=== PATIENT | female | born 1940 | race Caucasian/White ===

== ENCOUNTER 2019-03-07 17:03 | Inpatient (IN) | payer OTHER ==
[~2019-03-07] VITALS: Ht 162.6 cm; Wt 71.7 kg
[2019-03-07 18:35] LABS: CALCIUM 8.8 mg/dL (8.5-10.1); CARBON DIOXIDE 26.1 mmol/L (21-32); CHLORIDE SERUM 103 mmol/L (98-107); CREATININE SERUM 0.8 mg/dL (0.6-1.0); GLUCOSE SERUM 155 mg/dL (74-106); SODIUM SERUM 142 mmol/L (136-145)
[2019-03-07 18:42] LABS: PLATELET COUNT 216 x10^3mcL (130-400); RED CELL DISTRIBUTION WIDTH 12.7 % (11.5-14.5)
[2019-03-07 18:44] LABS: BASOPHIL % 0 % (0-2)
[2019-03-07 18:46] LABS: ALKALINE PHOSPHATASE 69 U/L (46-116); ALT/SGPT 41 U/L (14-59); AST/SGOT 26 U/L (15-37); BILIRUBIN TOTAL 1.7 mg/dL (0.20-1.00)
[2019-03-07] MEDS ORDERED: MULTI-VITAMINS1 TAB PO (19:40)
[2019-03-07] MEDS ORDERED: MONTELUKAST SOD10 M1 PO (19:40)
[2019-03-07] MEDS ORDERED: MAGNESIUM OXID400 MG (19:40)
[2019-03-07] MEDS ORDERED: TOPROL XL25 MG PO (19:41)
[2019-03-07] MEDS ORDERED: TRAZODONE50 M1 PO (19:41)
[2019-03-07] MEDS ORDERED: ASPIR 8181 MG PO (19:42)
[2019-03-07] MEDS ORDERED: CALCIUM 600600 M3 PO (19:42)
[2019-03-07 21:58] VITALS: BP 134/51
[2019-03-07 22:07] VITALS: BP 134/51
[2019-03-08 01:40] VITALS: BP 126/84
[2019-03-08 06:00] VITALS: BP 132/55
[2019-03-08 06:27] LABS: PLATELET COUNT 197 x10^3mcL (130-400); RED CELL DISTRIBUTION WIDTH 12.9 % (11.5-14.5)
[2019-03-08 06:29] LABS: CALCIUM 8.7 mg/dL (8.5-10.1); CARBON DIOXIDE 23.4 mmol/L (21-32); CHLORIDE SERUM 107 mmol/L (98-107); CREATININE SERUM 0.8 mg/dL (0.6-1.0); GLUCOSE SERUM 164 mg/dL (74-106); POTASSIUM SERUM 3.8 mmol/L (3.5-5.1); SODIUM SERUM 142 mmol/L (136-145)
[2019-03-08 06:51] LABS: BASOPHIL % 0 % (0-2)
[2019-03-08 08:21] VITALS: BP 118/53
[2019-03-08 16:31] VITALS: BP 115/52
[2019-03-08 21:27] VITALS: BP 114/51
[2019-03-09 05:29] VITALS: BP 112/55
[2019-03-09 06:14] LABS: BASOPHIL % 0.2 % (0-2); PLATELET COUNT 195 x10^3mcL (130-400); RED CELL DISTRIBUTION WIDTH 13.4 % (11.5-14.5)
[2019-03-09 07:12] LABS: ALKALINE PHOSPHATASE 54 U/L (46-116); ALT/SGPT 18 U/L (14-59); AST/SGOT 11 U/L (15-37); CALCIUM 8.2 mg/dL (8.5-10.1); CARBON DIOXIDE 25.5 mmol/L (21-32); CHLORIDE SERUM 108 mmol/L (98-107); CREATININE SERUM 0.7 mg/dL (0.6-1.0); GLUCOSE SERUM 130 mg/dL (74-106); MAGNESIUM 1.9 mg/dL (1.8-2.4); POTASSIUM SERUM 3.7 mmol/L (3.5-5.1); SODIUM SERUM 144 mmol/L (136-145)
[2019-03-09 07:14] LABS: ALBUMIN 2.8 g/dL (3.4-5.0); TOTAL PROTEIN, SERUM 5.7 g/dL (6.4-8.2)
[2019-03-09 10:01] VITALS: BP 110/49
[2019-03-09 17:40] VITALS: BP 109/55
[2019-03-09 20:49] VITALS: BP 112/63
[2019-03-10 06:10] VITALS: BP 126/49
[2019-03-10 09:25] VITALS: BP 125/54
[2019-03-10 16:23] VITALS: BP 139/70
[2019-03-10 21:00] VITALS: BP 125/54
[2019-03-11 03:30] VITALS: BP 142/67
[2019-03-11 06:00] VITALS: BP 120/63
[2019-03-11 07:59] LABS: ALKALINE PHOSPHATASE 44 U/L (46-116); ALT/SGPT 25 U/L (14-59); AST/SGOT 17 U/L (15-37); BILIRUBIN TOTAL 0.7 mg/dL (0.20-1.00); CALCIUM 8.1 mg/dL (8.5-10.1); CARBON DIOXIDE 26.8 mmol/L (21-32); CHLORIDE SERUM 105 mmol/L (98-107); CREATININE SERUM 0.7 mg/dL (0.6-1.0); GLUCOSE SERUM 130 mg/dL (74-106); MAGNESIUM 1.7 mg/dL (1.8-2.4); POTASSIUM SERUM 3.5 mmol/L (3.5-5.1); SODIUM SERUM 142 mmol/L (136-145)
[2019-03-11 08:02] LABS: ALBUMIN 2.7 g/dL (3.4-5.0); TOTAL PROTEIN, SERUM 5.5 g/dL (6.4-8.2)
[2019-03-11 08:03] LABS: BASOPHIL % 0.2 % (0-2); PLATELET COUNT 253 x10^3mcL (130-400); RED CELL DISTRIBUTION WIDTH 12.5 % (11.5-14.5)
[2019-03-11 09:27] VITALS: BP 108/72
[2019-03-11 18:55] VITALS: BP 125/54
[2019-03-11 21:15] VITALS: BP 122/48
[2019-03-12 05:52] VITALS: BP 114/48
[2019-03-12 07:51] LABS: BASOPHIL % 0.3 % (0-2); PLATELET COUNT 231 x10^3mcL (130-400); RED CELL DISTRIBUTION WIDTH 13.2 % (11.5-14.5)
[2019-03-12 08:08] LABS: CALCIUM 7.7 mg/dL (8.5-10.1); CARBON DIOXIDE 27.7 mmol/L (21-32); CHLORIDE SERUM 108 mmol/L (98-107); CREATININE SERUM 0.7 mg/dL (0.6-1.0); GLUCOSE SERUM 114 mg/dL (74-106); SODIUM SERUM 145 mmol/L (136-145)
[2019-03-12 09:00] VITALS: BP 131/43
[2019-03-12 09:14] LABS: POTASSIUM SERUM 2.9 mmol/L (3.5-5.1)
[2019-03-12 17:30] VITALS: BP 130/55
[2019-03-12 21:01] VITALS: BP 105/75
[2019-03-13 05:41] VITALS: BP 113/48
[2019-03-13 06:39] LABS: CALCIUM 8.1 mg/dL (8.5-10.1); CARBON DIOXIDE 28.3 mmol/L (21-32); CHLORIDE SERUM 107 mmol/L (98-107); CREATININE SERUM 0.7 mg/dL (0.6-1.0); GLUCOSE SERUM 113 mg/dL (74-106); POTASSIUM SERUM 3.3 mmol/L (3.5-5.1); SODIUM SERUM 144 mmol/L (136-145)
[2019-03-13 06:46] LABS: BASOPHIL % 0.3 % (0-2); PLATELET COUNT 219 x10^3mcL (130-400); RED CELL DISTRIBUTION WIDTH 12.9 % (11.5-14.5)
[2019-03-13 09:12] VITALS: BP 130/90
[2019-03-13 16:42] VITALS: BP 125/48
[2019-03-13 21:51] VITALS: BP 126/58
[2019-03-14 05:25] VITALS: BP 129/50
[2019-03-14 09:01] VITALS: BP 129/70
[2019-03-14 12:00] LABS: CALCIUM 7.6 mg/dL (8.5-10.1); CARBON DIOXIDE 30.5 mmol/L (21-32); CHLORIDE SERUM 105 mmol/L (98-107); CREATININE SERUM 0.7 mg/dL (0.6-1.0); GLUCOSE SERUM 133 mg/dL (74-106); POTASSIUM SERUM 3.1 mmol/L (3.5-5.1); SODIUM SERUM 140 mmol/L (136-145)
[2019-03-14 12:05] LABS: BASOPHIL % 0.3 % (0-2); PLATELET COUNT 227 x10^3mcL (130-400); RED CELL DISTRIBUTION WIDTH 13.5 % (11.5-14.5)
[2019-03-14 16:37] VITALS: BP 124/60
[2019-03-14 21:05] VITALS: BP 128/60
[2019-03-15 05:54] VITALS: BP 110/62
[2019-03-15 06:22] LABS: ALKALINE PHOSPHATASE 41 U/L (46-116); ALT/SGPT 25 U/L (14-59); AST/SGOT 15 U/L (15-37); BASOPHIL % 0.2 % (0-2); BILIRUBIN DIRECT 0.16 mg/dL (0.0-0.2); CALCIUM 7.9 mg/dL (8.5-10.1); CARBON DIOXIDE 28.2 mmol/L (21-32); CHLORIDE SERUM 106 mmol/L (98-107); CREATININE SERUM 0.6 mg/dL (0.6-1.0); GLUCOSE SERUM 155 mg/dL (74-106); PLATELET COUNT 240 x10^3mcL (130-400); POTASSIUM SERUM 3.5 mmol/L (3.5-5.1); RED CELL DISTRIBUTION WIDTH 13.2 % (11.5-14.5); SODIUM SERUM 141 mmol/L (136-145)
[2019-03-15 06:34] LABS: ALBUMIN 2.5 g/dL (3.4-5.0)
[2019-03-15 09:42] VITALS: BP 134/61
[2019-03-15 17:43] VITALS: BP 128/58
[2019-03-15 21:22] VITALS: BP 130/66
[2019-03-16 05:13] VITALS: BP 113/54
[2019-03-16 06:58] LABS: BASOPHIL % 0.2 % (0-2); PLATELET COUNT 235 x10^3mcL (130-400); RED CELL DISTRIBUTION WIDTH 13.2 % (11.5-14.5)
[2019-03-16 07:34] LABS: CALCIUM 8.4 mg/dL (8.5-10.1); CARBON DIOXIDE 24.9 mmol/L (21-32); CHLORIDE SERUM 104 mmol/L (98-107); CREATININE SERUM 0.5 mg/dL (0.6-1.0); GLUCOSE SERUM 136 mg/dL (74-106); POTASSIUM SERUM 3.6 mmol/L (3.5-5.1); SODIUM SERUM 139 mmol/L (136-145)
[2019-03-16 09:41] VITALS: BP 122/70
[2019-03-16 18:04] VITALS: BP 135/56
[2019-03-16 21:37] VITALS: BP 147/55
[2019-03-17 03:10] VITALS: BP 112/53
[2019-03-17 05:21] VITALS: BP 127/51
[2019-03-17 08:06] VITALS: BP 112/60
[2019-03-17 11:41] VITALS: BP 135/66
[2019-03-17 15:38] VITALS: BP 123/62
[2019-03-17 20:49] VITALS: BP 140/83
[2019-03-17 23:20] VITALS: Ht 162.6 cm; Wt 71.7 kg
[2019-03-18 05:47] VITALS: BP 127/61
[2019-03-18 06:25] LABS: BASOPHIL % 0.1 % (0-2); PLATELET COUNT 237 x10^3mcL (130-400); RED CELL DISTRIBUTION WIDTH 13.1 % (11.5-14.5)
[2019-03-18 07:32] LABS: CALCIUM 8.6 mg/dL (8.5-10.1); CARBON DIOXIDE 22.4 mmol/L (21-32); CHLORIDE SERUM 107 mmol/L (98-107); CREATININE SERUM 0.5 mg/dL (0.6-1.0); GLUCOSE SERUM 107 mg/dL (74-106); POTASSIUM SERUM 4.2 mmol/L (3.5-5.1); SODIUM SERUM 140 mmol/L (136-145)
[2019-03-18 09:52] VITALS: BP 111/60
[2019-03-18 17:14] VITALS: BP 110/47
[2019-03-18 19:50] VITALS: BP 110/67
[2019-03-19 06:11] VITALS: BP 131/63
[2019-03-19 06:48] LABS: PLATELET COUNT 294 x10^3mcL (130-400); RED CELL DISTRIBUTION WIDTH 13.8 % (11.5-14.5)
[2019-03-19 06:51] LABS: ALKALINE PHOSPHATASE 53 U/L (46-116); ALT/SGPT 23 U/L (14-59); AST/SGOT 13 U/L (15-37); BILIRUBIN TOTAL 0.7 mg/dL (0.20-1.00); CALCIUM 9.1 mg/dL (8.5-10.1); CARBON DIOXIDE 23.8 mmol/L (21-32); CHLORIDE SERUM 107 mmol/L (98-107); CREATININE SERUM 0.8 mg/dL (0.6-1.0); GLUCOSE SERUM 99 mg/dL (74-106); MAGNESIUM 2.1 mg/dL (1.8-2.4); POTASSIUM SERUM 4.2 mmol/L (3.5-5.1); SODIUM SERUM 141 mmol/L (136-145); TOTAL PROTEIN, SERUM 6.2 g/dL (6.4-8.2)
[2019-03-19 06:52] LABS: ALBUMIN 3.3 g/dL (3.4-5.0)
[2019-03-19 08:34] VITALS: BP 121/59
[2019-03-19 16:14] VITALS: BP 110/63
[2019-03-19 20:58] VITALS: BP 123/71
[2019-03-20 05:41] VITALS: BP 112/64
[2019-03-20 06:12] LABS: BASOPHIL % 0.4 % (0-2); PLATELET COUNT 290 x10^3mcL (130-400); RED CELL DISTRIBUTION WIDTH 13.6 % (11.5-14.5)
[2019-03-20 06:50] LABS: ALBUMIN 3.6 g/dL (3.4-5.0); ALKALINE PHOSPHATASE 64 U/L (46-116); ALT/SGPT 21 U/L (14-59); AST/SGOT 9 U/L (15-37); BILIRUBIN TOTAL 0.85 mg/dL (0.20-1.00); CALCIUM 9.7 mg/dL (8.5-10.1); CHLORIDE SERUM 104 mmol/L (98-107); CREATININE SERUM 0.8 mg/dL (0.6-1.0); GLUCOSE SERUM 113 mg/dL (74-106); POTASSIUM SERUM 4.4 mmol/L (3.5-5.1); SODIUM SERUM 138 mmol/L (136-145); TOTAL PROTEIN, SERUM 6.8 g/dL (6.4-8.2)
[2019-03-20 09:19] VITALS: BP 124/71
[2019-03-20 10:22] VITALS: BP 124/71
== END 2019-03-20 13:51 | disposition home health service (06) | DRG 329 ==
LOC: ED 17:03 → MU 20:01 → DU 20:01 → MU 21:27 → DU 21:42 → MU 21:45
PROVIDERS: Emergency Medicine; Internal Medicine Pulmonary Disease; Surgery; ADMIT Internal Medicine Pulmonary Disease
PROC: 0D1B0Z4 Bypass Ileum to Cutaneous, Open Approach (ICD-10-PCS; principal; 2019-03-07 22:45)
DX: K57.32 Diverticulitis of large intestine without perforation or abscess without bleeding (principal); K65.9 Peritonitis, unspecified; K56.7 Ileus, unspecified; K37 Unspecified appendicitis; Z68.27 Body mass index [BMI] 27.0-27.9, adult
CPT/HCPCS: 82962; C1758; G0378; J0330; J0690; J1170; J1885; J1956; J2060; J2405; J2543; J2550; J2704; J2710; J2765; J3010; J3475; J3480; J3490; J7040; J7050; J7120; J7131; Q0092; Q9967

== ENCOUNTER 2019-03-20 18:54 | Emergency (ER) | payer OTHER ==
[~2019-03-20] VITALS: Ht 162.6 cm; Wt 67.1 kg
[~2019-03-20 18:54] MED LIST: ASPIR 8181 MG PO; CALCIUM 600600 M3 PO; MAGNESIUM OXID400 MG; MONTELUKAST SOD10 M1 PO; MULTI-VITAMINS1 TAB PO; TOPROL XL25 MG PO; TRAZODONE50 M1 PO
[2019-03-20 19:32] VITALS: Ht 162.6 cm; Wt 67.1 kg
[2019-03-20 22:33] VITALS: BP 121/99
== END 2019-03-20 22:33 | disposition home or self-care (01) ==
LOC: ED 18:54
DX: K94.09 Other complications of colostomy (principal); Z90.710 Acquired absence of both cervix and uterus; Z98.890 Other specified postprocedural states; Z88.5 Allergy status to narcotic agent; Z88.1 Allergy status to other antibiotic agents

== ENCOUNTER 2019-04-18 17:38 | Observation (INO) | payer OTHER ==
[~2019-04-18] VITALS: Ht 162.6 cm; Wt 70.0 kg
[2019-04-18 17:56] VITALS: Ht 162.6 cm; Wt 70.0 kg
--- NOTE | 2019-04-18 18:34 | NUR ---
LABS DRAWN FROM [facility] IV, WATER QUALITY ASSISTANT AT BEDSIDE TO RECEIVED LABS.
--- NOTE | 2019-04-18 18:40 | NUR ---
PT BIB C/O BLEEDING TO STOMA, ERYTHEMA AND PAIN TO SKIN SURROUNDING STOMA. PT STS SHE HAD STOMA PLACED ON 03/07/19 AFTER "BLEEDING AFTER A COLONOSCOPY", PT STS "HOME HEALTH WAS SUPPOSED TO COME TO MY HOUSE AND PUT THE BAG AND CLEAN IT AND STUFF AND SHE DIDN'T COME UNTIL 7 DAYS AFTER I WAS RELEASED FROM THE HOSPITAL. AND WHEN SHE DID COME THE SUPPLIES SHE GAVE ME DIDN'T FIT THE STOMA, AND SHE TOLD ME TO KEEP USING THE KOTEX TO ABSORB THE POOP UNTIL I SAW MY DR", PT STS SHE WAS RELEASED FROM HOSPITAL AFTER STOMA PLACEMENT ON 03/20/19. PT ALSO STS SHE HAS HAD ERYTHEMA TO SURROUNDING SKIN OF STOMA "SINCE I GOT RELEASED IT JUST GOT WORSE". PT REPORTS X3 DAYS WITH BLEEDING TO STOMA. X1 WEEK AGO PT STS SHE SAW HER SURGEON AND WAS MADE AWARE OF SUPPLIES NOT FITTING STOMA AND ERYTHEMA, "BUT THAT IT WASN'T INFECTED, SHE SAID I WAS GOING TO HAVE TO HAVE A SMALL SURGERY BUT I'VE BEEN WAITING FOR APPROVAL FROM MY INSURANCE. PT ALSO STS SHE WAS SUPPOSED TO "HAVE A BARIUM ENEMA TODAY BUT WHEN I CALLED TO CONFIRM THE APPOINTMENT THEY HAD TO CANCEL IT BECAUSE I WAS NEVER GIVEN THE PREP". STOMA NOTED TO BE RED WITH NO ACTIVE BLEEDING NOTED, SMALL BLOOD CLOT NOTED TO OUTTER STOMA. PT ALSO NOTED TO HAVE TAPED KOTEX TO ABD "TO ABSORB THE POOP". DR BARGER COMPLETED MSE. PT PLACED ON FULL CM, NAD NOTED, CALL LIGHT WITHIN REACH, AT BEDSIDE. PT IN POSITION OF COMFORT.
[2019-04-18 18:49] LABS: BASOPHIL % 0.3 % (0-2); PLATELET COUNT 267 x10^3mcL (130-400); RED CELL DISTRIBUTION WIDTH 12.5 % (11.5-14.5)
[2019-04-18 18:54] LABS: CALCIUM 9.2 mg/dL (8.5-10.1); CARBON DIOXIDE 26.6 mmol/L (21-32); CHLORIDE SERUM 104 mmol/L (98-107); CREATININE SERUM 0.8 mg/dL (0.6-1.0); GLUCOSE SERUM 90 mg/dL (74-106); POTASSIUM SERUM 3.8 mmol/L (3.5-5.1); SODIUM SERUM 142 mmol/L (136-145)
[2019-04-18 18:58] LABS: ALBUMIN 3.4 g/dL (3.4-5.0); ALKALINE PHOSPHATASE 73 U/L (46-116); ALT/SGPT 18 U/L (14-59); AST/SGOT 15 U/L (15-37); BILIRUBIN TOTAL 0.5 mg/dL (0.20-1.00); TOTAL PROTEIN, SERUM 6.6 g/dL (6.4-8.2)
--- NOTE | 2019-04-18 19:06 | NUR ---
REPORT GIVEN TO JAVIER BECKETT TO ASSUME CARE OF PT.
--- NOTE | 2019-04-18 19:27 | NUR ---
SPOKE W/INSURANCE WILL SUBMIT INFO TO ADMIT
--- NOTE | 2019-04-18 19:30 | NUR ---
PT SHEETS AND ED GOWN CHANGED, CHUX PLACED ON BED. PT IN POSITION OF COMFORT, NAD NOTED, AT BESIDE, CALL LIGHT WITHIN REACH.
[2019-04-18] MEDS ORDERED: TRAZODONE50 M1 PO (20:02)
--- NOTE | 2019-04-18 21:31 | NUR ---
PT TAKEN TO MED SURG UNIT BY EMT. NO S/S OF DISTRESS. RESP E/U. REPORT CALLED TO JAVIER SINGH TO ASSUME CARE OF PT. IV SITE PATENT, PT DENIES PAIN OR DISCOMFORT.
--- NOTE | 2019-04-18 21:32 | NUR ---
RECEIVED FROM ED.PUT IN ROOM 242 A AND MADE COMFORTABLE.MEDSURG PATIENT.AMANDA WILL ADMIT PATIENT.OSMIN,ATTENDING PATIENT NOW.
--- NOTE | 2019-04-18 21:59 | NUR ---
RAC HEPLOCK EXTENSION TUBING APPLIED FOR EASIER HANDLING PATIENT AND NURSE
--- NOTE | 2019-04-18 22:02 | NUR ---
NS AT 80 CC/ HOUR ORDERED.WILL START.STOMA COLOSTOMY VERY RED AND IRRITATED,PICTURE TAKEN BY AMANDA,WILL APPLY COLOSTOMY BAG,AND GRACE SUPPOUNDING IT.
--- NOTE | 2019-04-18 22:16 | NUR ---
WILL START ATB TONIGHT.ALLERGIES NOTED FROM ER.
[2019-04-18 22:23] VITALS: BP 125/94
--- NOTE | 2019-04-18 22:38 | NUR ---
RECEIVED PT FROM ER, PT ADMIT FOR STOMA BLEEDING, PT IS A/O X4, VERBAL RESPONSIVE, ABLE TO TELL WHAT SHE NEEDS. LUNG SOUND CLEAR BILATERAL, NO COUGH, NO SOB, DENY ANY CHEST PAIN OR DISCOMFORT, BOWEL SOUND PRESENT. THERE ARE STOMA OPEN TO AIR WHILE COME FROM ER. THERE ARE ERYTHEMA, DERMATITIS AT ABD AREA DUE TO STOMA DRAINAGE. INITIALLY CLEAN THE ABD AREA. AND COVERED WITH COLOSTOMY BAG. THERE IS TRACE BLOOD FROM STOMA WHILE CLEAN THE STOMA, PEDAL PULSE PRESENT BOTH FEET, NO EDEMA, IV AT RIGHT AC, NO LEAKING, NO INFILTRATION. ALL ADLS ASSIST, ALL NEED MET, CALL LIGHT IN REACH, WILL CONTINUE TO MONITOR.
--- NOTE | 2019-04-18 22:42 | NUR ---
SURROUNDING SKIN STOMA,SO IRRITATED.COLOSTOMY BAG WON'T STAY,LEAKING FROM NAVEL AMANDA DID THE ADMISSION ASSESSMENT.JAMES AWARE OF SKIN IRRITATION,WILL ACTIVATE WOUND NURSE/SKIN INTEGRITY.
--- NOTE | 2019-04-19 00:40 | NUR ---
DR HENDRIX PAGE AT THIS TIME,PATIENT WANTING TRAZADONE ,SAYS FOR SLEEP,SHE TAKES Q NIGHT AT HOME.
--- NOTE | 2019-04-19 00:56 | NUR ---
DR DUMONT DID NOT CALL BACK YET,PATIENT STILL WAITING.
--- NOTE | 2019-04-19 01:43 | NUR ---
PATIENT TRAZADONE GIVEN AT THS TIME.QUIET ENVIRONMENT MAINTAINED.CALL LIGHT IN REACH.
[2019-04-19 06:02] VITALS: BP 113/49
--- NOTE | 2019-04-19 06:36 | NUR ---
NEW SET OF COLOSTOMY BAG,SURROUNDING AREA RED AND IRRITATED.WIUND NURSE IS GOING TO SEE HER/CONSULT.
--- NOTE | 2019-04-19 06:38 | NUR ---
PATIENT GIVEN ZOFRAN,WAS NAUSEATED.PATIENT REMAINS NPO.
[2019-04-19 06:56] LABS: CARBON DIOXIDE 22.7 mmol/L (21-32); CHLORIDE SERUM 107 mmol/L (98-107); CREATININE SERUM 0.7 mg/dL (0.6-1.0); GLUCOSE SERUM 85 mg/dL (74-106); POTASSIUM SERUM 3.5 mmol/L (3.5-5.1); SODIUM SERUM 142 mmol/L (136-145)
--- NOTE | 2019-04-19 07:03 | NUR ---
RECEIVED PT FROM ENTERPRISE RESOURCE PLANNER NURSE. PT RESTING IN BED, AOX4, RESP E/U ON RA. DENIES PAIN OR N/V, NO ACUTE DISTRESS NOTED. COLOSTOMY IN PLACE TO R ABD, STOMA RED, NO OUTPUT, DRAINAGE OR LEAKING OBSERVED AT THIS TIME. Z-GUARD APPLIED AROUND STOMA SITE.IV TO RAC W/ NO SIGNS OF INFILTRATION, IVF INFUSING WELL. BED IN LOWEST POSITION AND CALL LIGHT WITHIN REACH. WILL CONTINUE TO MONITOR.
[2019-04-19 07:14] LABS: BASOPHIL % 0.4 % (0-2); PLATELET COUNT 231 x10^3mcL (130-400)
[2019-04-19 09:16] VITALS: BP 104/45
--- NOTE | 2019-04-19 12:40 | NUR ---
PT C/O OF HEADACHE RATED 8/10. MEDICATED ORDERED PER EMAR, COMFORT MEASURES IMPLEMENTED. WILL CONTINUE TO MONITOR.
[2019-04-19 16:07] VITALS: BP 120/56
--- NOTE | 2019-04-19 16:27 | NUR ---
CALLED AND INFORMED TO DR. SALAZAR AND DR. DUMONT THE RESULT OF BE. NO NEW DRDER RECEIVED AT THIS TIME.
--- NOTE | 2019-04-19 19:30 | NUR ---
RECEIVED PT FROM PREVIOUS SHIFT. AAO. ABLE TO MAKE NEEDS KNOWN. SPEECH CLEAR. DENIES YHE/DIZZINESS. MEDSURG. NO S/S ACUTE DISTRESS. DENIES ABD PAIN, DENIES N/V. RLQ COLOSTOMY STOMA RED, SKIN SURROUNDING STOMA WITH DERMATITIS, ZGUARD APPLIED, COLOSTOMY DRAINING FROTHY GREEN OUTPUT. LEAKING NOTED AROUND SITE. DENIES SOB. PT NPO FOR POSSIBLE PROCEDURE. CALL LIGHT WITHIN REACH. SAFETY MEASURES IN PLACE. WILL CONTINUE TO MONITOR.
[2019-04-19 20:38] VITALS: BP 119/54
--- NOTE | 2019-04-19 20:41 | NUR ---
PT UPSET, STATES SHE HASN'T EATEN SINCE YESTERDAY AFTERNOON AND WOULD LIKE TO KNOW IF SHE CAN HAVE SOMETHING TO EAT. DR. SALAZAR HAS NOT SEEN PT YET, PLANS FOR SURGERY UNKNOWN. WILL CALL DR. DUMONT.
--- NOTE | 2019-04-19 21:14 | NUR ---
COLOSTOMY TO RLQ CHANGED, STOMA CARE PROVIDED, Z-GUARD APPLIED TO SURROUNDING AREA FOR DERMATITIS.
--- NOTE | 2019-04-19 21:56 | NUR ---
PAGED DR. SALAZAR REGARDING PT DIET ORDER AND PLANS FOR SURGERY.
--- NOTE | 2019-04-19 22:24 | NUR ---
IV TO RAC BLEEDING, PT C/O PAIN AND DISCOMFORT AT SITE. IV REMOVED WITH CATHETER INTACT. NEW #22 GAUGE IV INSERTED INTO RFA, FLUSHES WELL, PATENT AND INTACT.
--- NOTE | 2019-04-19 23:21 | NUR ---
PT REQUESTING HER "NIGHT MEDS", PER MED REC, PT TAKES METOPROLOL 25MG PO AND IS ALSO REQUESTING TRAMADOL 50MG PO[address] DR[address] HERNANDEZ PAGED. NO CALLBACK RECEIVED.
--- NOTE | 2019-04-20 01:11 | NUR ---
PT RESTING IN BED. BREATHING E/U. NO S/S ACUTE DISTRESS. NO INDICATIONS OF PAIN. CALL LIGHT WITHIN REACH. SAFETY MEASURES IN PLACE. WILL CONTINUE TO MONITOR.
--- NOTE | 2019-04-20 05:28 | NUR ---
COLOSTOMY BAG CHANGED, CARE RENDERED.
--- NOTE | 2019-04-20 06:01 | NUR ---
PT C/O DISCOMFORT TO RFA IV, EDEMA WITH NO ERYTHEMA NOTED. HOT COMPRESS APPLIED. ELEVATED ON PILLOW. WILL ATTEMPT TO REINSERT NEW IV.
[2019-04-20 06:40] VITALS: BP 110/62
--- NOTE | 2019-04-20 06:49 | NUR ---
PT HAS NO IV ACCESS AT THIS TIME, 3 RN'S ATTEMPTED, UNSUCESSFUL. WILL ENDORSE TO ONCOMING SHIFT.
--- NOTE | 2019-04-20 07:03 | NUR ---
RECEIVED PT FROM CENTRAL SUPPLY NURSE NURSE. PT RESTING IN BED, AOX4, RESP E/U ON RA. PT DENIES HEADACHE, PAIN OR N/V. NO ACUTE DISTRESS NOTED. COLOSTOMY IN PLACE TO R ABD, NO OUTPUT OR LEAKAGE OBSERVED, TOWEL IN PLACE AND Z-GUARD ON SURROUNDING TISSUE. NO IV ACCESS AT THIS TIME, CHARGE NURSE MADE AWARE, IV INSERTION TO FOLLOW. BED IN LOWEST POSITION AND CALL LIGHT WITHIN REACH. WILL CONTINUE TO MONITOR.
[2019-04-20 08:28] VITALS: BP 125/53
--- NOTE | 2019-04-20 10:51 | NUR ---
WOUND CARE EVALUATION NOTE: REASON FOR EVALUATION: DILIP-STOMA SKIN IRRITATION SKIN ASSESSMENT DONE WITH THIS 78Y/O FEMALE PT ADMITTED FROM HOME WITH INITIAL DX BLEEDING FROM STOMA. PAST MEDICAL HX INCLUDES DIVERTICULOSIS, COLOSTOMY ON FEBRUARY 2019. ALL ABOVE INFORMATION OBTAINED FROM ADMISSION H&P AND PT. PT IS AAX4. STOMA CARE AND APPLICATION TEACH TO PT. PT VERBALIZES UNDERSTANDING. PLAN OF CARE DISCUSSED WITH PRIMARY RN. INTEGUMENTARY: -RLQ ABDOMINAL OSTOMA BEEFY RED, 1 3/8 "AND 1CM TALL, FUNCTIONING WITH GREENISH LIQUID OUTPUT OBSERVED TO POUCH, PT. HAD BARIUM ENEMA YESTERDAY. DILIP STOMA SKIN WITH MULTIPLE EROSIONS, AND REDNESS EXTENDED TO MID ABDOMINAL RECOMMENDATIONS: -MERCHANDISE DIRECTOR FOR SUPPLY SERVICES -OSTOMY CARE PER PROTOCOL AND DURING OSTOMY CARE PLEASE FOLLOW INSTRUCTION BELOW: -CHECK DILIP STOMA SKIN CONDITION EVERY TIME WAFER CHANGED Q 5 DAYS AND PRN IF DISPLACED -CLEANSE DILIP STOMA SKIN WITH SOAP AND WATER, PAT DRY, APPLY SKIN PREP TO DILIP-OSTOMY SKIN -APPLY STOMA ADHESIVE /ROSITA RING, NEAR THE EDGE OF STOMA SKIN AREA, AND SKIN FOLD EXTENED TO NAVEL, PAT FLAT TO ENSURE SMOOTH SURFACE THEN APPLY THE WAFER, DUST DILIP-STOMA POWDER TO SKIN REDNESS AREA -USE 2- PIECES TOÑO OSTOMY DEVICES WITH 1 3/8" (35MM), CUT TO FIT THE STOMA EXACTLY. NO SKIN SHOWING. APPLY PRE-CUT WAFER TO OSTOMY AND ATTACHED POUCH TO WAFER. CHANGE WAFER Q5 DAYS. -MAY ATTACH POUCH TO BED SIDE DRAINAGE BAG -EMPTY AND RINSE POUCH PRN. CHANGE POUCH Q5 DAYS AND PRN IF LEAK -MAY DISCHARGE HOME WITH SULLPIES FOLLOWIN COMPLETE POUCH CHANGES 8 ROSITA RINGS 1 OSTOMY APPLIANCE BELT 1 BOTTLE OF STOMA ADHESIVE POWDER 8 SKIN PREPS PRIMARY RN CONTINUE TEACHING ILEOSTOMY CARE. ALL ABOVE RECOMMENDATIONS DISCUSSED WITH PRIMARY RN. PLEASE CONTACT WOUND CARE NURSE FOR ANY QUESTION AND CHANGE OF WOUND CONDITION.
--- NOTE | 2019-04-20 12:00 | NUR ---
PT IN BED BEING SEEN BY WOUND CARE NURSE AT THIS TIME. COLOSTOMY BAG CHANGED AND REINFORCED. WOUND CARE DONE. PT AOX4, RESP E/U ON RA, DENIES PAIN. BED IN LOWEST POSITION AND CALL LIGHT WITHIN REACH. WILL CONTINUE TO MONITOR.
[2019-04-20 15:20] VITALS: BP 125/53
--- NOTE | 2019-04-20 16:50 | NUR ---
PT DISCHARGED. REVIEWED VISIT SUMMARY, EDUCATIONAL PACKET AND FOLLOW UP INSTRUCTIONS W/ PT. PT AOX4, RESP E/U, VS STABLE, DENIES HEADACHE OR PAIN. ASSISTED AND PROVIDED INSTRUCTIONS ON EMPYTING/CLEANING COLOSTOMY BAG. AMBULATORY TO DISCHARGE OFFICE, ESCORTED BY JAVIER MOON W/ NO ACUTE INCIDENCE.
== END 2019-04-20 16:45 | disposition home or self-care (01) | DRG 395 ==
LOC: ED 17:38 → MU 21:08
PROVIDERS: Emergency Medicine; ADMIT Internal Medicine
DX: Z43.3 Encounter for attention to colostomy (principal); R21 Rash and other nonspecific skin eruption; K57.90 Diverticulosis of intestine, part unspecified, without perforation or abscess without bleeding
CPT/HCPCS: A4371; G0378; J0690; J2405; J7030; Q9967

== ENCOUNTER 2019-11-19 11:41 | Observation (INO) | payer OTHER ==
[~2019-11-19] VITALS: Ht 162.6 cm; Wt 65.3 kg
[2019-11-19 11:48] VITALS: Ht 162.6 cm; Wt 65.3 kg
[2019-11-19 12:19] LABS: BASOPHIL % 0.3 % (0-2); PLATELET COUNT 198 x10^3mcL (130-400); RED CELL DISTRIBUTION WIDTH 14.7 % (11.5-14.5)
[2019-11-19 12:37] LABS: CALCIUM 8.9 mg/dL (8.5-10.1); CARBON DIOXIDE 30.2 mmol/L (21-32); CHLORIDE SERUM 105 mmol/L (98-107); CREATININE SERUM 0.7 mg/dL (0.6-1.0); GLUCOSE SERUM 107 mg/dL (74-106); POTASSIUM SERUM 4.1 mmol/L (3.5-5.1); SODIUM SERUM 138 mmol/L (136-145)
[2019-11-19 12:46] LABS: ALBUMIN 3.6 g/dL (3.4-5.0); ALKALINE PHOSPHATASE 89 U/L (46-116); ALT/SGPT 21 U/L (14-59); AST/SGOT 23 U/L (15-37); BILIRUBIN TOTAL 0.49 mg/dL (0.20-1.00); TOTAL PROTEIN, SERUM 6.8 g/dL (6.4-8.2)
[2019-11-19 16:02] LABS: CHOLESTEROL/HDL RATIO 3.3
[2019-11-19 17:22] VITALS: BP 108/68
[2019-11-19 20:12] VITALS: BP 104/44
[2019-11-20 05:22] VITALS: BP 105/54
[2019-11-20 07:24] VITALS: BP 142/62
[2019-11-20 11:12] VITALS: BP 119/54
[2019-11-20 16:25] LABS: BASOPHIL % 0.1 % (0-2); PLATELET COUNT 199 x10^3mcL (130-400); RED CELL DISTRIBUTION WIDTH 15.1 % (11.5-14.5)
[2019-11-20 16:39] VITALS: BP 106/55
[2019-11-20 16:59] LABS: CALCIUM 8.8 mg/dL (8.5-10.1); CARBON DIOXIDE 29.6 mmol/L (21-32); CHLORIDE SERUM 107 mmol/L (98-107); CREATININE SERUM 0.8 mg/dL (0.6-1.0); GLUCOSE SERUM 128 mg/dL (74-106); POTASSIUM SERUM 3.8 mmol/L (3.5-5.1); SODIUM SERUM 139 mmol/L (136-145)
[2019-11-20 21:06] VITALS: BP 122/62
[2019-11-21 05:41] VITALS: BP 100/67
[2019-11-21 09:29] VITALS: BP 111/61
[2019-11-21 12:29] VITALS: BP 130/56
[2019-11-21 14:06] VITALS: BP 130/56
== END 2019-11-21 14:27 | disposition home or self-care (01) ==
LOC: ED 11:41 → DU 14:35
PROVIDERS: ADMIT Internal Medicine Pulmonary Disease
DX: R07.89 Other chest pain (principal); I10 Essential (primary) hypertension; I49.3 Ventricular premature depolarization; E78.5 Hyperlipidemia, unspecified
CPT/HCPCS: A9500; G0378; J1650; J2405; J2785